=== PATIENT | male | born 1960 | race Caucasian/White ===

== ENCOUNTER → 2020-03-13 15:20 | Outpatient (CLI) | payer BC, SELFPAY ==
[2020-03-13 16:09] LABS: Basophils % 0.9 % (0.1-2.0); Eosinophils # 0.1 K/mm3 (0.0-0.4); Eosinophils % 1.9 % (0.1-12.0); Hematocrit 47.8 % (42.0-52.0); Hemoglobin 15.6 g/dL (14.1-18.0); Lymphocytes # 1.7 K/mm3 (0.7-4.5); Lymphocytes % 36.9 % (10-50); Mean Corpuscular HGB Conc 32.7 g/dL (31.8-35.4); Mean Corpuscular Hemoglobin 30.5 pg (27.0-31.2); Mean Corpuscular Volume 93.2 fl (80-94); Mean Platelet Volume 9.4 fl (7.4-10.4); Monocytes # 0.4 K/mm3 (0.1-1.0); Monocytes % 7.9 % (1.7-9.3); Neutrophils # 2.5 K/mm3 (1.8-7.8); Neutrophils % 52.4 % (37.0-80.0); Platelet Count 259 K/mm3 (142-424); Red Blood Count 5.13 M/mm3 (4.60-6.20); Red Cell Distribution Width 13.7 % (11.5-17.5); White Blood Count 4.7 K/mm3 (4.8-10.8)
[2020-03-13 16:10] LABS: Creatinine,Urine Random 126 mg/dL (Not Estab.)
[2020-03-13 16:13] LABS: Alanine Aminotransferase 40 U/L (12-78); Albumin Level 4.1 g/dl (3.5-5.0); Albumin/Globulin Ratio 1.3 (1.1-1.8); Alkaline Phosphatase 64 U/L (38-126); Anion Gap 12.4 mEq/L (5-15); Aspartate Amino Transferase 39 U/L (17-59); Bilirubin,Total 0.4 mg/dl (0.2-1.3); Blood Urea Nitrogen 15 mg/dl (9-20); Carbon Dioxide 26 mmol/L (22.0-30.0); Chloride 103 mmol/L (98-107); Chol/HDL Ratio 4.6 (1-3.5); Cholesterol 208 mg/dl (140-200); Estimated Glomerular Filt Rate 86 ml/min (>60); GFR (African American) 104 ML/MIN (>60); Globulin 3.1 g/dL (1.3-3.2); Glucose 145 mg/dl (74-100); HDL Cholesterol 45 mg/dl (40-60); Potassium 4.4 mmoL/L (3.5-5.1); Sodium 137 mmol/L (136-145); Total Protein,Serum 7.2 g/dl (6.3-8.2); Triglycerides 262 mg/dl (30-150); VLDL Cholesterol 52 mg/dL (0-40)
[2020-03-13 16:16] LABS: Microalbumin < 6.000 mg/L (0-16.7)
[2020-03-13 16:23] LABS: Direct LDL Cholesterol 134.93 mg/dL (100-129)
[2020-03-13 16:28] LABS: Hemoglobin A1C 7.1 % (4.0-6.0)
[2020-03-13 16:43] LABS: Prostate Specific Ag Screen 0.1 ng/ml (0.0-4.0)
== END ==
PROVIDERS: Visit Provider Family Medicine
DX: E11.9 Type 2 diabetes mellitus without complications (principal); E78.5 Hyperlipidemia, unspecified; I10 Essential (primary) hypertension; Z12.5 Encounter for screening for malignant neoplasm of prostate; Z79.84 Long term (current) use of oral hypoglycemic drugs
CPT/HCPCS: 80053; 80061; 82043; 82570; 83036; 85025; G0103

== ENCOUNTER → 2020-03-22 09:08 | Outpatient (CLI) | payer BC, SELFPAY ==
--- NOTE | 2020-03-22 09:09 | CA_ITS ---
APPROVED REPORT EXAM: Comprehensive 2D, Doppler, and color-flow Echocardiogram Nurse'S Companion: Olive Paige RT(R) Ht: 5 ft 6 in Wt: 196lbs BSA: 1.98 BP: 126/84 mmHg Indications: murmur, HTN, DM, hyperlipidemia Echo Enhancing Agent Indication: Endocardial border delineation Agent(s) / Amount(s) Used: Definity 2 cc 2D Dimensions LVOT 1.76 cm (M/F) 1.5-2.5 M-Mode Dimensions RVDd 1.64 cm (0.9-2.6) LA Diam 3.96 cm (1.9-4.0) LVDd 4.13 cm (3.5-5.7) Ao Diam 2.74 cm (2.0-3.7) LVDs 2.81 cm (3.5-5.7) IVSd 0.96 cm (0.6-1.1) PWd 0.75 cm (0.6-1.1) EF (Teich) 60.50% FS 32.00% EDV (Teich) 75.50 mL ESV (Teich) 29.80 mL LV Diastology E Decel Time 217.00 (160-240 msec) E/A Ratio 4.1 MED E' 7.00 (< 7 cm/sec) E'/MED E' Ratio 16.21 (>14) LAT E' 8.60 (<10 cm/sec) E/LAT E' Ratio 13.20 (>14) Mitral Valve MV E Max Ferny. 114.00 (40-130 cm/s) MV A Velocity 28.00 (40-130 cm/s) E/A Ratio 4.04 MV Decel. Time 217.00 (160-240 ms) MV PHT 63.00 ms Left Ventricle Left atrium is mildly enlarged, left ventricle is normal size, mild concentric left ventricular hypertrophy, visually estimated ejection fraction 55% with no regional wall motion abnormality, grade 2 diastolic dysfunction seen with tissue Doppler evidence of raise left atrial pressure. Right Ventricle Right atrium and right ventricle are normal size and contractility. Aortic Valve Aortic valve is thickened and calcified without aortic stenosis or aortic insufficiency. Mitral Valve Mitral valve is grossly normal, there is mild mitral regurgitation. Tricuspid Valve Tricuspid valve is grossly normal, there is mild tricuspid regurgitation, tricuspid regurgitation jet velocity is inadequate for calculation of the right ventricular systolic pressure. Pulmonic Valve Pulmonic valve is poorly visualized. Great Vessels Aortic root is normal size. Pericardium No significant pericardial effusion noted. Conclusion 1. Mildly enlarged left atrium, normal left ventricular size, mild concentric left ventricular hypertrophy, visually estimated ejection fraction 55% with no regional wall motion abnormality, Definity contrast was utilized to delineate the endocardial surfaces, there is no left ventricular thrombus seen, grade 2 diastolic dysfunction with tissue Doppler evidence of raise left atrial pressure. 2. Thickened and calcified aortic valve without aortic stenosis or aortic insufficiency. 3. Mild mitral and tricuspid regurgitation. 4. No significant pericardial effusion noted. Electronically signed by : Dev Rivas, 03/23/2020 10:24:54
== END ==
PROVIDERS: PCP Family Medicine; Visit Provider Family Medicine
DX: R01.1 Cardiac murmur, unspecified (principal)
CPT/HCPCS: 93306; Q9957

== ENCOUNTER → 2020-03-28 11:09 | Outpatient (CLI) | payer BC, SELFPAY ==
--- NOTE | 2020-03-28 11:15 | XR_ITS ---
PROCEDURE: XR CHEST 2V CLINICAL HISTORY: chest pain, dyspnea COMPARISON: No exams were available for comparison FINDINGS: The cardiomediastinal silhouette and pulmonary vascularity are within normal limits. The lungs are clear without infiltrates, suspicious nodules, or pleural effusions. There are calcified right hilar nodes and there are calcified granulomata right upper lobe and right lung base. No acute bony abnormalities. IMPRESSION: Old granulomatous disease, no acute chest pathology noted Dictated by: Dr. Cordell Pino MD 03/28/2020 11:39 Dr. Cordell Pino MD in [place] 03/28/2020 11:39
== END ==
PROVIDERS: PCP Family Medicine; Visit Provider Nurse Practitioner Family
DX: R07.9 Chest pain, unspecified (principal); R06.00 Dyspnea, unspecified; R94.31 Abnormal electrocardiogram [ECG] [EKG]; E11.9 Type 2 diabetes mellitus without complications; E78.5 Hyperlipidemia, unspecified; I10 Essential (primary) hypertension; Z79.84 Long term (current) use of oral hypoglycemic drugs
CPT/HCPCS: 71046

== ENCOUNTER → 2020-04-10 07:15 | Outpatient (CLI) | payer BC, SELFPAY ==
--- NOTE | 2020-04-10 | CA_ITS ---
APPROVED REPORT Exam: Pharmacologic Technologist: Valeria Brasher Ht: 5 ft 6 in Wt: 200 lbs BSA: 2.00 m2 HR: 82 bpm BP: 174/84 mmHg Indications: Chest pain, Shortness of Breath Medical History Medications: Metoprolol,,,,, Metformin,,,,, Losartan,,,,, Atorvastatin,,,,, Tramadol,,,,, Hydrocodone-Acetaminophen,,,,, FeNOfibric Acid,,,,, Stress Test Details Test: LEXISCAN HR Resting HR: 94 bpm Max Heart Rate (APMHR): 159 bpm Max HR Achieved: 137 bpm Target HR (85% APMHR): 135 bpm % of APMHR: 86 Recovery HR: 107 bpm BP Resting BP: 174.0/84.0 mmHg Max BP: 194.0/86.0 mmHg Recovery BP: 174.0/82.0 mmHg ECG Resting ECG: Normal sinus rhythm, cannot rule out old inferior ME Clinical Exercise duration: 04:00 min Highest Stage Achieved: Exercise capacity: 1.0 METs Stress ECG Conclusion Symptoms: Chest pressure/tightness, shortness of air, mild stomach discomfort and malaise. Arrhythmias/Ectopy: Rare PVC Conclusion: Unremarkable Lexiscan stress. Myoview images reported separately. Electronically signed by : Dev Rivas, 04/11/2020 06:38:57
--- NOTE | 2020-04-10 07:15 | NM_ITS ---
APPROVED REPORT Exam: Nuclear Stress Test Indication: Chest pain, SOB, Fatigue, HTN, DM, High cholesterol, Family history Patient Location: Outpatient Stress Tech: Valeria Brasher HI Tech:Veda Diaz, ARRT, RT (R)(N) Ht: 5 ft 6 in Wt: 196 lbs HR: 82 bpm BP: 174/84 mmHg BSA: 1.98 m2 BMI: 31.6 History: Chest pain, SOB, Fatigue, HTN, DM, High cholesterol, Family history Procedure: Patient received a 0.4 mg of intravenous Lexiscan, resting heart rate 82 bpm, resting blood pressure 174/84 mmHg, with Lexiscan maximum heart rate achived was 125 bpm which is Less than 85 % of the maximum predicted heart rate and blood pressure was 194/86 mmHg. Electrocardiogram Resting electrocardiogram showed sinus rhythm, with Lexiscan there is less than 1.[address] segment depression noted from the baseline EKG. The EKG portion of the Lexiscan is nondiagnostic. Cardiac Stress and Resting SPECT Images: Cardiac Stress and Resting SPECT images were obtained using technetium 99m Myoview 32.7 mCi stress and 10.63 mCi at rest. Gated SPECT for analysis of segmental wall motion and calculation of the ejection fraction also done. Cardiac stress and rest SPECT images show uniform myocardial activity without segmental perfusion abnormality, computer derived ejection fraction is over 65% with no regional wall motion abnormality, right ventricle is normal size and contractility. Conclusion: 1. The EKG portion of the Lexiscan is nondiagnostic. 2. No scintigraphic evidence of reversible ischemia seen, computer derived ejection fraction is over 65% with no regional wall motion abnormality, right ventricle is normal size and contractility. 3. Normal Lexiscan Myoview study. Electronically signed by : Dev Rivas, 04/11/2020 06:53:48
--- NOTE | 2020-04-10 08:57 | HMH.ITSHM ---
Current Home Medications as stated by this patient Andry Tom or vendor representatives. []ATORVASTATIN METOPROLOL METFORMIN LOSARTAN FENOFIBIL TRAMADOL HYDROCODONE
== END ==
PROVIDERS: PCP Family Medicine; Visit Provider Urology
DX: R07.9 Chest pain, unspecified (principal); R06.00 Dyspnea, unspecified; R94.31 Abnormal electrocardiogram [ECG] [EKG]; E11.9 Type 2 diabetes mellitus without complications; E78.5 Hyperlipidemia, unspecified; I10 Essential (primary) hypertension; Z79.84 Long term (current) use of oral hypoglycemic drugs
CPT/HCPCS: 78452; 93017; A9502; J2785

== ENCOUNTER → 2020-12-21 17:37 | Outpatient (CLI) | payer BC, SELFPAY ==
[2020-12-21 18:29] LABS: Basophils % 0.5 % (0.1-2.0); Eosinophils # 0.1 K/mm3 (0.0-0.4); Eosinophils % 2.7 % (0.1-12.0); Hematocrit 44.2 % (42.0-52.0); Hemoglobin 14.2 g/dL (14.1-18.0); Lymphocytes # 2.1 K/mm3 (0.7-4.5); Lymphocytes % 42.2 % (10-50); Mean Corpuscular HGB Conc 32.2 g/dL (31.8-35.4); Mean Corpuscular Hemoglobin 30.1 pg (27.0-31.2); Mean Corpuscular Volume 93.5 fl (80-94); Mean Platelet Volume 8.9 fl (7.4-10.4); Monocytes # 0.5 K/mm3 (0.1-1.0); Monocytes % 10.3 % (1.7-9.3); Neutrophils # 2.2 K/mm3 (1.8-7.8); Neutrophils % 44.3 % (37.0-80.0); Platelet Count 246 K/mm3 (142-424); Red Blood Count 4.72 M/mm3 (4.60-6.20); Red Cell Distribution Width 13.1 % (11.5-17.5)
[2020-12-21 18:49] LABS: Alanine Aminotransferase 34 U/L (12-78); Albumin Level 4.3 g/dl (3.5-5.0); Albumin/Globulin Ratio 1.5 (1.1-1.8); Alkaline Phosphatase 66 U/L (38-126); Anion Gap 15.3 mEq/L (5-15); Aspartate Amino Transferase 35 U/L (17-59); Bilirubin,Total 0.4 mg/dl (0.2-1.3); Blood Urea Nitrogen 16 mg/dl (9-20); Calcium 9.6 mg/dl (8.4-10.2); Carbon Dioxide 26 mmol/L (22.0-30.0); Chloride 102 mmol/L (98-107); Chol/HDL Ratio 3.8 (1-3.5); Cholesterol 175 mg/dl (140-200); Estimated Glomerular Filt Rate 98 ml/min (>60); GFR (African American) 119 ML/MIN (>60); Globulin 2.9 g/dL (1.3-3.2); Glucose 101 mg/dl (74-100); HDL Cholesterol 46 mg/dl (40-60); Potassium 4.3 mmoL/L (3.5-5.1); Sodium 139 mmol/L (136-145); Total Protein,Serum 7.2 g/dl (6.3-8.2); Triglycerides 206 mg/dl (30-150); VLDL Cholesterol 41 mg/dL (0-40)
[2020-12-21 19:10] LABS: Microalbumin/Creatinine Ratio 5.2
[2020-12-21 19:16] LABS: Creatinine,Urine Random 165 mg/dL (Not Estab.)
[2020-12-21 19:46] LABS: Hemoglobin A1C 7.7 % (4.0-6.0)
== END ==
PROVIDERS: Visit Provider Family Medicine
DX: E11.9 Type 2 diabetes mellitus without complications (principal); E78.5 Hyperlipidemia, unspecified; I10 Essential (primary) hypertension; Z79.84 Long term (current) use of oral hypoglycemic drugs
CPT/HCPCS: 80053; 80061; 82043; 82570; 83036; 85025

== ENCOUNTER → 2021-03-12 07:51 | Outpatient (CLI) | payer BC, SELFPAY ==
--- NOTE | 2021-03-12 07:52 | CA_ITS ---
APPROVED REPORT EXAM: Comprehensive 2D, Doppler, and color-flow Echocardiogram Green Hide Inspector: Oralia Oliveira RVT Ht: 5 ft 6 in Wt: 191lbs BSA: 1.96 BP: 183/91 mmHg Indications: MURMUR,HTN,ABN EKG,HLD,DM 2D Dimensions LVOT 2.13 cm (M/F) 1.5-2.5 LA Volume 37.70 mL LA Volume Index 19.23 mL/m2 (M/F) 16-34 M-Mode Dimensions RVDd 2.25 cm (0.9-2.6) LA Diam 4.87 cm (1.9-4.0) LVDd 3.32 cm (3.5-5.7) Ao Diam 2.78 cm (2.0-3.7) LVDs 1.82 cm (3.5-5.7) IVSd 1.11 cm (0.6-1.1) PWd 0.93 cm (0.6-1.1) EF (Teich) 77.70% FS 45.20% EDV (Teich) 44.80 mL TAPSE 2.46 (<1.7) ESV (Teich) 10.00 mL LV Diastology E Decel Time 230.00 (160-240 msec) E/A Ratio 1.4 MED E' 6.60 (< 7 cm/sec) E'/MED E' Ratio 16.35 (>14) LAT E' 16.00 (<10 cm/sec) E/LAT E' Ratio 6.74 (>14) Mitral Valve MV E Max Ferny. 108.00 (40-130 cm/s) MV A Velocity 80.00 (40-130 cm/s) E/A Ratio 1.34 MV Decel. Time 230.00 (160-240 ms) MV PHT 67.00 ms Pulmonary Valve PV Peak Velocity 105.00 (50-150 cm/s) Tricuspid Valve TR P. Velocity 216.00 cm/s RAP Estimate 10.00 mmHg RVSP 28.60 mmHg Left Ventricle Left atrium is mildly enlarged, left ventricle is normal size, mild concentric left ventricular hypertrophy, visually estimated ejection fraction 55% with no obvious regional wall motion abnormality. Grade 1 diastolic dysfunction seen without tissue Doppler evidence of raise left atrial pressure. Right Ventricle Right atrium and right ventricle are normal size and contractility. Aortic Valve Aortic valve is thickened and calcified without aortic stenosis or aortic insufficiency. Mitral Valve Mitral valve is grossly normal, there is trace mitral regurgitation. Tricuspid Valve Tricuspid valve grossly normal, there is trace tricuspid regurgitation, tricuspid regurgitation jet velocity is inadequate for calculation of the right ventricular systolic pressure. Pulmonic Valve Pulmonic valve is poorly visualized. Great Vessels Aortic root is normal size. Inferior vena cava is poorly visualized. Pericardium No significant pericardial effusion noted. Conclusion 1. Mildly enlarged left atrium, normal left ventricular size, mild concentric left ventricular hypertrophy, visually estimated ejection fraction 55% with no regional wall motion abnormality, grade 1 diastolic dysfunction seen without tissue Doppler evidence of raise left atrial pressure. 2. Thickened and calcified aortic valve without aortic stenosis or aortic insufficiency. 3. Trace mitral and tricuspid regurgitation. 4. No significant pericardial effusion. 5. Inferior vena cava is normal size with normal inspiratory collapse. Electronically signed by : Dev Rivas MD 03/12/2021 18:36:54
--- NOTE | 2021-03-12 07:52 | CA_ITS ---
APPROVED REPORT Forensic Investigator: Oralia Oliveira RVT Study Quality: Good Indications: HTNHX KIDNEY STONES Risk Factors Hypertension Hyperlipidemia Diabetes Renal Artery Doppler Origin (R) 186.4/ cm/sec Proximal (R) 204.3/ cm/sec Mid (R) 246.8/ cm/sec Distal (R) 164.5/ cm/sec Renal Aorta Ratio (R) 0.00 Segmental A. (R) 63.6/18.4 cm/sec RI: 0.71 Segmental A. Sup (R) 63.6/18.4 cm/sec Segmental A. Mid (R) 39.8/13.8 cm/sec Segmental A. Inf (R) 32.9/16.1 cm/sec Origin (L) 134.9/ cm/sec Proximal (L) 160.4/ cm/sec Mid (L) 143.4/ cm/sec Distal (L) 148.7/ cm/sec Renal Aorta Ratio (L) 0.00 Segmental A. (L) 76.8/27.7 cm/sec RI: 0.63 Segmental A. Sup (L) 76.8/27.7 cm/sec Segmental A. Mid (L) 75.6/17.3 cm/sec Segmental A. Inf (L) 62.6/17.3 cm/sec Renal Measurements Kidney Size (R) 10.8x7.6 cm Cortical Thickness (R) 1.9 cm Kidney Size (L) 12.6x8.7 cm Cortical Thickness (L) 1.4 cm Findings Study suggests greater than 60% stenosis of the right renal artery. Study suggests no evidence of stenosis of the left renal artery. There is a 1.5 X 1.1 cm cyst mid to lower pole left kidney. Conclusion Study suggests greater than 60% stenosis of the right renal artery. Suggest CTA for confirmation Study suggests no evidence of stenosis of the left renal artery. There is a 1.5 X 1.1 cm cyst mid to lower pole left kidney. Electronically signed by : Brett Noel MD 03/12/2021 16:36:10
== END ==
PROVIDERS: PCP Family Medicine; Visit Provider Physician Assistant
DX: R01.1 Cardiac murmur, unspecified (principal); E11.9 Type 2 diabetes mellitus without complications; I10 Essential (primary) hypertension; E78.5 Hyperlipidemia, unspecified; R94.31 Abnormal electrocardiogram [ECG] [EKG]; Z79.84 Long term (current) use of oral hypoglycemic drugs
CPT/HCPCS: 93306; 93976

== ENCOUNTER → 2021-03-18 09:33 | Outpatient (CLI) | payer BC, SELFPAY | PROVIDERS: PCP Family Medicine; Visit Provider Physician Assistant | DX: R00.2 Palpitations (principal); R07.9 Chest pain, unspecified; R01.1 Cardiac murmur, unspecified; R06.00 Dyspnea, unspecified; E78.5 Hyperlipidemia, unspecified; I10 Essential (primary) hypertension; R94.31 Abnormal electrocardiogram [ECG] [EKG]; I70.1 Atherosclerosis of renal artery ==

== ENCOUNTER → 2021-03-26 09:23 | Outpatient (CLI) | payer BC, SELFPAY ==
[2021-03-26 09:58] LABS: Basophils % 0.8 % (0.1-2.0); Eosinophils # 0.2 K/mm3 (0.0-0.4); Eosinophils % 2.9 % (0.1-12.0); Hematocrit 46.6 % (42.0-52.0); Hemoglobin 14.9 g/dL (14.1-18.0); Lymphocytes # 1.7 K/mm3 (0.7-4.5); Lymphocytes % 31.2 % (10-50); Mean Corpuscular Hemoglobin 29.7 pg (27.0-31.2); Mean Corpuscular Volume 92.9 fl (80-94); Mean Platelet Volume 8.3 fl (7.4-10.4); Monocytes # 0.5 K/mm3 (0.1-1.0); Monocytes % 8.6 % (1.7-9.3); Neutrophils % 56.5 % (37.0-80.0); Platelet Count 255 K/mm3 (142-424); Red Blood Count 5.02 M/mm3 (4.60-6.20); White Blood Count 5.4 K/mm3 (4.8-10.8)
[2021-03-26 10:48] LABS: Chloride 100 mmol/L (98-107); Potassium 4.4 mmoL/L (3.5-5.1); Sodium 139 mmol/L (136-145)
[2021-03-26 10:51] LABS: Anion Gap 13.4 mEq/L (5-15); Blood Urea Nitrogen 16 mg/dl (9-20); Carbon Dioxide 30 mmol/L (22.0-30.0); Estimated Glomerular Filt Rate 86 ml/min (>60); GFR (African American) 103 ML/MIN (>60)
[2021-03-26 10:52] LABS: Calcium 9.7 mg/dl (8.4-10.2); Glucose 145 mg/dl (74-100)
== END ==
PROVIDERS: Visit Provider Physician Assistant
DX: Z01.812 Encounter for preprocedural laboratory examination (principal); Z11.52 Encounter for screening for COVID-19; R06.00 Dyspnea, unspecified; R07.9 Chest pain, unspecified; R01.1 Cardiac murmur, unspecified; I70.1 Atherosclerosis of renal artery; I10 Essential (primary) hypertension; E11.9 Type 2 diabetes mellitus without complications; E78.5 Hyperlipidemia, unspecified; R94.31 Abnormal electrocardiogram [ECG] [EKG]
CPT/HCPCS: 36415; 80048; 85025; C9803; U0003; U0005

== ENCOUNTER 2021-04-02 08:46 | Day surgery (SDC) | payer BC, SELFPAY ==
[2021-04-02] VITALS (17 sets, daily range): BP systolic 94–169; BP diastolic 58–97; PULSE 55–71; RESP 13–16; O2SAT 92–100; BMI 30.7
--- NOTE | 2021-04-02 07:01 | IR_ITS ---
APPROVED REPORT Patient Location: Outpatient PROCEDURES Bilateral selective renal angiography INDICATION Abnormal renal duplex Informed consent was obtained prior to the procedure. COMPLICATIONS None Estimated Blood Loss: Less than 10 mls TECHNIQUE 1% lidocaine used to anesthetize the right femoral groin. The right femoral artery was accessed via the Seldinger technique. A 4 Polish sheath was placed in the right femoral artery. The JR4 catheter was used to selectively intubate each renal artery. At the end of the diagnostic angiogram the patient was transferred to the postop holding area in stable condition for sheath removal. ANGIOGRAPHIC RESULTS Right renal artery singular normal Left renal artery singular normal IMPRESSION Angiographically normal renal arteries PLAN 1. Treatment of hypertension Electronically signed by : Tyler Islas MD 04/02/2021 11:34:44
== END 2021-04-02 14:54 | disposition home or self-care (01) ==
LOC: CATHLAB 08:47
PROVIDERS: PCP Family Medicine; Visit Provider Internal Medicine
DX: I70.1 Atherosclerosis of renal artery (principal); I10 Essential (primary) hypertension; E11.9 Type 2 diabetes mellitus without complications; Z79.84 Long term (current) use of oral hypoglycemic drugs; E78.5 Hyperlipidemia, unspecified
CPT/HCPCS: 36252; 99152; C1725; C1769; J1644; Q9967

== ENCOUNTER → 2021-09-06 09:53 | Outpatient (CLI) | payer BC, SELFPAY ==
[2021-09-06 17:46] LABS: Prostate Specific Ag Screen 0.2 ng/ml (0.0-4.0)
[2021-09-06 19:29] LABS: Hemoglobin A1C 6.3 % (4.0-6.0)
== END ==
PROVIDERS: PCP Family Medicine; Visit Provider Family Medicine
DX: R10.31 Right lower quadrant pain (principal); E11.9 Type 2 diabetes mellitus without complications; Z12.5 Encounter for screening for malignant neoplasm of prostate; Z79.84 Long term (current) use of oral hypoglycemic drugs
CPT/HCPCS: 83036; 87086; G0103

== ENCOUNTER → 2022-03-18 13:08 | Outpatient (CLI) | payer BC, SELFPAY ==
[2022-03-18 17:37] LABS: Basophils # 0.1 K/mm3 (0-0.2); Eosinophils # 0.2 K/mm3 (0.0-0.4); Eosinophils % 3.5 % (0.1-12.0); Hematocrit 43.8 % (42.0-52.0); Hemoglobin 14.1 g/dL (14.1-18.0); Lymphocytes # 1.8 K/mm3 (0.7-4.5); Lymphocytes % 31.5 % (10-50); Mean Corpuscular HGB Conc 32.1 g/dL (31.8-35.4); Mean Corpuscular Volume 93.4 fl (80-94); Mean Platelet Volume 9.4 fl (7.4-10.4); Monocytes # 0.4 K/mm3 (0.1-1.0); Monocytes % 7.8 % (1.7-9.3); Neutrophils # 3.2 K/mm3 (1.8-7.8); Neutrophils % 56.2 % (37.0-80.0); Platelet Count 279 K/mm3 (142-424); Red Blood Count 4.69 M/mm3 (4.60-6.20); Red Cell Distribution Width 13.6 % (11.5-17.5); White Blood Count 5.7 K/mm3 (4.8-10.8)
[2022-03-18 17:48] LABS: Alanine Aminotransferase 30 U/L (12-78); Albumin Level 4.4 g/dl (3.5-5.0); Albumin/Globulin Ratio 1.8 (1.1-1.8); Alkaline Phosphatase 48 U/L (38-126); Aspartate Amino Transferase 34 U/L (17-59); Bilirubin,Total 0.3 mg/dl (0.2-1.3); Blood Urea Nitrogen 21 mg/dl (9-20); Calcium 10.2 mg/dl (8.4-10.2); Carbon Dioxide 27 mmol/L (22.0-30.0); Chloride 101 mmol/L (98-107); Chol/HDL Ratio 3.7 (1-3.5); Cholesterol 159 mg/dl (140-200); Estimated Glomerular Filt Rate 75 ml/min (>60); GFR (African American) 91 ML/MIN (>60); Globulin 2.5 g/dL (1.3-3.2); Glucose 124 mg/dl (74-100); HDL Cholesterol 43 mg/dl (40-60); Sodium 138 mmol/L (136-145); Total Protein,Serum 6.9 g/dl (6.3-8.2); Triglycerides 178 mg/dl (30-150); VLDL Cholesterol 36 mg/dL (0-40)
[2022-03-18 18:50] LABS: Direct LDL Cholesterol 84.73 mg/dL (100-129)
[2022-03-18 19:37] LABS: Hemoglobin A1C 6.2 % (4.0-6.0)
== END ==
PROVIDERS: PCP Family Medicine; Visit Provider Family Medicine
DX: Z00.00 Encounter for general adult medical examination without abnormal findings (principal); I10 Essential (primary) hypertension; E78.5 Hyperlipidemia, unspecified; M54.9 Dorsalgia, unspecified; G89.29 Other chronic pain; Z12.5 Encounter for screening for malignant neoplasm of prostate
CPT/HCPCS: 80053; 80061; 83036; 85025

== ENCOUNTER → 2022-12-24 09:02 | Outpatient (CLI) | payer BC, SELFPAY ==
[2022-12-24 09:48] LABS: Basophils % 0.7 % (0.1-2.0); Eosinophils # 0.2 K/mm3 (0.0-0.4); Eosinophils % 4.5 % (0.1-12.0); Hematocrit 46.2 % (42.0-52.0); Hemoglobin 14.4 g/dL (14.1-18.0); Lymphocytes # 1.6 K/mm3 (0.7-4.5); Mean Corpuscular HGB Conc 31.2 g/dL (31.8-35.4); Mean Corpuscular Hemoglobin 28.7 pg (27.0-31.2); Mean Corpuscular Volume 91.9 fl (80-94); Mean Platelet Volume 9.1 fl (7.4-10.4); Monocytes # 0.3 K/mm3 (0.1-1.0); Monocytes % 6.8 % (1.7-9.3); Neutrophils # 2.2 K/mm3 (1.8-7.8); Neutrophils % 50.9 % (37.0-80.0); Platelet Count 227 K/mm3 (142-424); Red Blood Count 5.03 M/mm3 (4.60-6.20); Red Cell Distribution Width 13.8 % (11.5-17.5); White Blood Count 4.2 K/mm3 (4.8-10.8)
[2022-12-24 10:16] LABS: Hemoglobin A1C 6.5 % (4.0-6.0)
[2022-12-24 10:43] LABS: Alanine Aminotransferase 31 U/L (12-78); Albumin Level 3.9 g/dl (3.5-5.0); Albumin/Globulin Ratio 1.4 (1.1-1.8); Alkaline Phosphatase 45 U/L (38-126); Anion Gap 13.8 mEq/L (5-15); Aspartate Amino Transferase 35 U/L (17-59); Bilirubin,Total 0.3 mg/dl (0.2-1.3); Blood Urea Nitrogen 20 mg/dl (9-20); Calcium 9.5 mg/dl (8.4-10.2); Carbon Dioxide 27 mmol/L (22.0-30.0); Chloride 100 mmol/L (98-107); Chol/HDL Ratio 5.4 (1-3.5); Cholesterol 129 mg/dl (140-200); Estimated Glomerular Filt Rate 75 ml/min (>60); GFR (African American) 91 ML/MIN (>60); Globulin 2.7 g/dL (1.3-3.2); Glucose 110 mg/dl (74-100); HDL Cholesterol 24 mg/dl (40-60); Potassium 3.8 mmoL/L (3.5-5.1); Sodium 137 mmol/L (136-145); Total Protein,Serum 6.6 g/dl (6.3-8.2); Triglycerides 302 mg/dl (30-150); VLDL Cholesterol 60 mg/dL (0-40)
[2022-12-24 10:54] LABS: Direct LDL Cholesterol 77.28 mg/dL (100-129)
[2022-12-24 11:14] LABS: Prostate Specific Ag Screen 0.2 ng/ml (0.0-4.0)
== END ==
PROVIDERS: PCP Family Medicine; Visit Provider Family Medicine
DX: Z00.00 Encounter for general adult medical examination without abnormal findings (principal); I10 Essential (primary) hypertension; E78.5 Hyperlipidemia, unspecified; Z79.899 Other long term (current) drug therapy; Z12.5 Encounter for screening for malignant neoplasm of prostate
CPT/HCPCS: 36415; 80053; 80061; 83036; 85025; G0103

== ENCOUNTER → 2023-01-23 14:03 | Outpatient (CLI) | payer BC, SELFPAY ==
--- NOTE | 2023-01-23 14:06 | CA_ITS ---
APPROVED REPORT EXAM: Comprehensive 2D, Doppler, and color-flow Echocardiogram Gun Profiler: Olive Paige RT(R) Ht: 5 ft 6 in Wt: 175lbs BSA: 1.89 BP: 156/80 mmHg Indications: CP, dyspnea, DD, HTN, DM, hyperlipidemia, Abn EKG, recent COVID (7 weeks ago) SOB worse since COVID infection. 2D Dimensions LVOT 1.57 cm (M/F) 1.5-2.5 LVEF (Quinn's) 56.80 % M: 52 - 72 LV Volume 98.40 mL M: 62 - 150 LV Volume Index 52.06 mL/m2 M: 34 - 74 LA Volume 29.00 mL LA Volume Index 15.34 mL/m2 (M/F) 16-34 M-Mode Dimensions RVDd 1.90 cm (0.9-2.6) LA Diam 4.38 cm (1.9-4.0) LVDd 4.49 cm (3.5-5.7) Ao Diam 2.44 cm (2.0-3.7) LVDs 2.85 cm (3.5-5.7) IVSd 0.84 cm (0.6-1.1) PWd 0.72 cm (0.6-1.1) EF (Teich) 66.40% FS 36.50% EDV (Teich) 92.00 mL ESV (Teich) 30.90 mL LV Diastology E Decel Time 213.00 (160-240 msec) E/A Ratio 1.4 MED E' 8.00 (< 7 cm/sec) E'/MED E' Ratio 15.65 (>14) LAT E' 9.80 (<10 cm/sec) E/LAT E' Ratio 12.78 (>14) Mitral Valve MV E Max Ferny. 125.00 (40-130 cm/s) MV A Velocity 91.00 (40-130 cm/s) E/A Ratio 1.38 MV Decel. Time 213.00 (160-240 ms) MV PHT 62.00 ms Left Ventricle The left ventricle is normal size. The left ventricular systolic function is normal. The left ventricular ejection fraction is within the normal range. There is normal left ventricular wall thickness. There is normal LV segmental wall motion. The left ventricular diastolic function is normal. LVEF is 55-60%. Right Ventricle The right ventricle is normal size. The right ventricular systolic function is normal. Atria The left atrium size is normal. The right atrium size is normal. There is no Doppler evidence of interatrial shunt. Aortic Valve The aortic valve is mildly thickened, cannot rule out bicuspid aortic valve. There is no aortic valvular stenosis. No aortic regurgitation is present. Mitral Valve The mitral valve is normal in structure. No evidence of mitral valve stenosis. Trace mitral regurgitation. Tricuspid Valve The tricuspid valve leaflets are thin and pliable. Trace tricuspid regurgitation. RVSP is normal. Pulmonic Valve The pulmonary valve is normal in structure. Trace pulmonic regurgitation. Great Vessels The aortic root is normal in size. The ascending aorta is normal in size. IVC is normal in size and collapses >50% with inspiration. Pericardium There is no pericardial effusion. Other Information Study Quality: Fair Conclusion Normal biventricular systolic function. Mildly thickened aortic valve leaflets, cannot rule out bicuspid aortic valve No significant valvular stenosis or regurgitation. Electronically signed by : Maryellen Love MD 01/25/2023 22:18:18
--- NOTE | 2023-01-23 15:05 | XR_ITS ---
FINAL REPORT CLINICAL HISTORY: Valve thickening, H/O covid 7 weeks ago, pt c/o SOB FINDINGS: TWO-VIEW CHEST The heart size is normal. The mediastinum is normal. There is mild left base opacity, may represent atelectasis or scar. There is no pneumothorax. IMPRESSION: Left base atelectasis or scar. Reviewed, Interpreted and Dictated by Robby Prabhakar III, MD Transcribed by Carito Camacho Authenticated and [facility]
== END ==
PROVIDERS: PCP Family Medicine; Visit Provider Family Medicine
DX: R06.02 Shortness of breath (principal); R07.9 Chest pain, unspecified
CPT/HCPCS: 71046; 93306

== ENCOUNTER → 2023-03-04 06:17 | Outpatient (CLI) | payer BC, SELFPAY ==
--- NOTE | 2023-03-04 06:23 | NM_ITS ---
APPROVED REPORT Exam: Nuclear Stress Test Indication: chest pain..soa..palpiations..fatigue Patient Location: Outpatient Stress Tech: Valeria Brasher [place] Tech:Rosa Dickson ANABELAMaria RT(R)(N) Ht: 5 ft 6 in Wt: 175 lbs HR: 80 bpm BP: 163/90 mmHg BSA: 1.89 m2 Rhythm: NSR TID: 1.15 BMI: 28.2 History: chest pain..soa..palpiations..fatigue Procedure: Patient received 0.4 mg of intravenous Lexiscan, resting heart rate 80 bpm, resting blood pressure 163/90 mmHg, with Lexiscan maximum heart rate achieved was 97 bpm which is 85 % of the maximum predicted heart rate and blood pressure was 164/100 mmHg. With Lexiscan, patient denied any complaint of chest pain. Cardiac Stress and Resting SPECT Images: Cardiac Stress and Resting SPECT images were obtained using technetium 99m Myoview 31.6 mCi stress and 9.52 mCi at rest. Resting and stress imaging in supine and prone position demonstrate a medium sized, moderate, predominantly reversible perfusion defect in the inferior LV wall. Gated imaging demonstrates low-normal global LV systolic function. There is mild hypokinesis of the basal inferior LV wall. LVEF is calculated at 53%. Conclusion: Medium sized, moderate, predominantly reversible perfusion defect in the inferior LV wall. Findings are suggestive of reversible ischemia. Gated imaging demonstrates low-normal global LV systolic function. There is mild hypokinesis of the basal inferior LV wall. LVEF is calculated at 53%. Electronically signed by : Maryellen Love MD 03/08/2023 21:57:52
[2023-03-04 07:49] LABS: Blood Urea Nitrogen 19 mg/dl (9-20); Estimated Glomerular Filt Rate 67 ml/min (>60); GFR (African American) 82 ML/MIN (>60)
--- NOTE | 2023-03-04 09:29 | CT_ITS ---
FINAL REPORT TECHNIQUE: The patient was injected with IV contrast. Axial images were obtained through the chest in a PE protocol. 3-D reconstruction images were also performed. Individualized dose reduction techniques using automated exposure control or adjustment of the MA and/or KV according to patient's size were employed. CLINICAL HISTORY: dyspnea FINDINGS: There is a 1.2 cm nodule in the anterior right thyroid lobe. Mediastinal vasculature is adequately opacified. No pulmonary artery filling defects are identified to suggest PE. There is no aortic dissection. There is no axillary adenopathy. There is no hilar or mediastinal adenopathy. The heart size is normal. There is no pericardial or pleural effusion. Limited images of the upper abdomen show the gallbladder to be absent. No suspicious infiltrate or nodule is identified. There is scarring in the lung bases. IMPRESSION: No pulmonary embolus or dissection. Right thyroid lobe nodule. Recommend thyroid ultrasound. Reviewed, Interpreted and Dictated by Julian Pedersen MD Transcribed by Carito Camacho Authenticated and [facility]
--- NOTE | 2023-03-04 09:40 | CA_ITS ---
APPROVED REPORT Exam: Pharmacologic Technologist: Valeria Brasher Ht: 5 ft 6 in Wt: 183 lbs BSA: 1.93 m2 HR: 72 bpm BP: 163/90 mmHg Rhythm: NSR Indications: Shortness of Breath Medical History Medications: Metoprolol,,,,, Metformin,,,,, Gabapentin,,,,, Losartan,,,,, Atorvastatin,,,,, TAMSULOSIN,,,,, Albuterol,,,,, Tramadol,,,,, [place],,,,, Prednisone,,,,, Maxzide,,,,, FeNOfibric Acid,,,,, Stress Test Details Test: LEXISCAN HR Resting HR: 80 bpm Max Heart Rate (APMHR): 156 bpm Max HR Achieved: 97 bpm Target HR (85% APMHR): 133 bpm % of APMHR: 62 Recovery HR: 80 bpm BP Resting BP: 163.0/90.0 mmHg Max BP: 164.0/100.0 mmHg Recovery BP: 164.0/100.0 mmHg ECG Resting ECG: Normal sinus rhythm, PVC Stress ECG: No significant ST changes Arrhythmia: PVCs Clinical Exercise duration: 04:00 min Highest Stage Achieved: Exercise capacity: 1.0 METs Stress ECG Conclusion Symptoms: Shortness of air, chest heaviness, mild head and stomach discomfort Arrhythmias/Ectopy: None ST-T Changes: No significant ST changes. Conclusion: Unremarkable Lexiscan stress. Myoview images reported separately. Test Summary REST . . . . . . . Resting REST 04:38 . . 80 . 163/ 90 . . Stage 1 . . . . . . . Myoview Injected Stage 1 01:00 . . 94 . . . . Stage 2 . . . . . . . chest pressure Stage 2 01:00 . . 87 . 160/ 90 . . Stage 3 01:00 . . 83 . 160/ 84 . . Stage 4 01:00 . . 85 . 148/ 81 . Stop exercise at 04:00 RECOVERY 01:00 . . 85 . . . . RECOVERY 02:00 . . 78 . . . . RECOVERY 03:00 . . 82 . 159/ 92 . . RECOVERY 04:00 . . 81 . 159/ 92 . . RECOVERY 05:00 . . 79 . 164/100 . . RECOVERY 05:13 . . 77 . 164/100 . . Electronically signed by : Maryellen Love MD 03/08/2023 21:55:10
== END ==
PROVIDERS: PCP Family Medicine; Visit Provider Physician Assistant
DX: I11.9 Hypertensive heart disease without heart failure (principal); R06.00 Dyspnea, unspecified; R07.89 Other chest pain; R94.31 Abnormal electrocardiogram [ECG] [EKG]; E78.5 Hyperlipidemia, unspecified; Z87.891 Personal history of nicotine dependence
CPT/HCPCS: 71275; 78452; 82565; 84520; 93017; 93018; A9502; J2785; Q9967

== ENCOUNTER → 2023-03-09 12:45 | Outpatient (CLI) | payer BC, SELFPAY ==
--- NOTE | 2023-03-09 13:34 | PC.NURSE ---
PFT completed without incident. Good effort given. Albuterol 0.083% given via HHN, per protocol, Pt tolerated tx well.
--- NOTE | 2023-03-09 14:01 | US_ITS ---
FINAL REPORT CLINICAL HISTORY: Abnormal CTA - Further exam recommended COMPARISON: None FINDINGS: THYROID ULTRASOUND: The right thyroid lobe measures 4.7 x 1.7 x 2.7 cm in diameter. There is a 5 x 5 x 3 mm spongiform nodule in the right thyroid, a TI-RADS 1 category nodule. There is a second nodule, measuring 22 x 9 x 17 mm in size, spongiform with a macrocalcification, also a TI-RADS 1 category nodule. The left lobe of the thyroid gland measures 4.5 x 1.2 x 1.4 cm in size. No focal nodule or mass is identified. The isthmus of the thyroid gland measures 3.4 mm in thickness. IMPRESSION: There are 2 thyroid nodules in the right lobe of the thyroid gland, as described, both are considered TI-RADS 1 category nodules. No follow-up is necessary at this time according to TI-RADS criteria. Reviewed, Interpreted and Dictated by Robby Prabhakar III, MD Transcribed by Tahmina Ly Authenticated and [facility]
== END ==
PROVIDERS: PCP Family Medicine; Visit Provider Family Medicine
DX: E04.1 Nontoxic single thyroid nodule (principal); R68.89 Other general symptoms and signs; R06.09 Other forms of dyspnea
CPT/HCPCS: 76536; 94060; 94726; 94729

== ENCOUNTER 2023-03-23 08:52 | Day surgery (SDC) | payer BC, SELFPAY ==
[2023-03-23] VITALS (10 sets, daily range): BP systolic 81–167; BP diastolic 35–92; PULSE 55–66; RESP 17–20; O2SAT 92–99; BMI 29.2
--- NOTE | 2023-03-23 07:16 | IR_ITS ---
APPROVED REPORT Patient Location: Outpatient PROCEDURES Left heart catheterization Left ventriculogram Selective coronary angiogram INDICATION Abnormal Myoview, Angina pectoris Informed consent was obtained prior to the procedure. COMPLICATIONS None Estimated Blood Loss: Less than 10 mls TECHNIQUE One percent lidocaine used to anesthetize the right anterior aspect of the wrist. The right radial artery was accessed via the Seldinger technique. A 6 Spanish sheath was placed in the right radial artery. 2.5 mg of Verapamil, 800 mcg of nitroglycerin, 1mg Lidocaine and 5000 U Heparin were given through the arterial sheath. Due to tortuosity in the radial artery we are unable to cannulate and accessed the brachial artery. Because of this cardiac catheterization was converted to a femoral cath. One percent lidocaine was used to anesthetize the right groin. The right femoral artery was accessed via the Seldinger technique. A 4-Spanish sheath was placed in the right femoral artery. The JL-4 and JR-4 catheter was also used to perform left heart catheterization left ventriculogram and selective coronary angiogram. At the end of the procedure the patient was transferred to the post-op holding area in stable condition for arterial sheath removal. ANGIOGRAPHIC RESULTS The left main artery Normal The left anterior descending artery Proximally normal tortuous with no atherosclerotic plaque The circumflex artery Codominant with a mid vessel 20 to 30% stenosis The right coronary artery Codominant normal The MALIN ventriculogram reveals Normal 60% The left ventricular end-diastolic pressure 20 mmHg IMPRESSION Mild nonflow limiting coronary artery disease Normal ejection fraction Elevated LVEDP PLAN 1. Medical management Electronically signed by : Tyler Islas MD 03/23/2023 12:05:35
[2023-03-23 09:29] LABS: Basophils % 0.7 % (0.1-2.0); Eosinophils # 0.4 K/mm3 (0.0-0.4); Eosinophils % 6.8 % (0.1-12.0); Hematocrit 47.3 % (42.0-52.0); Hemoglobin 15.7 g/dL (14.1-18.0); Lymphocytes # 2.4 K/mm3 (0.7-4.5); Lymphocytes % 41.9 % (10-50); Mean Corpuscular HGB Conc 33.1 g/dL (31.8-35.4); Mean Corpuscular Hemoglobin 30.9 pg (27.0-31.2); Mean Corpuscular Volume 93.5 fl (80-94); Mean Platelet Volume 8.5 fl (7.4-10.4); Monocytes # 0.4 K/mm3 (0.1-1.0); Monocytes % 6.1 % (1.7-9.3); Neutrophils # 2.5 K/mm3 (1.8-7.8); Neutrophils % 44.4 % (37.0-80.0); Platelet Count 317 K/mm3 (142-424); Red Blood Count 5.06 M/mm3 (4.60-6.20); Red Cell Distribution Width 14.2 % (11.5-17.5); White Blood Count 5.7 K/mm3 (4.8-10.8)
[2023-03-23 09:34] LABS: Chloride 100 mmol/L (98-107); Sodium 137 mmol/L (136-145)
[2023-03-23 09:35] LABS: Potassium 4.7 mmoL/L (3.5-5.1)
[2023-03-23 09:37] LABS: Blood Urea Nitrogen 20 mg/dl (9-20); Creatinine Clearance Estimated 67 mL/min (50-200); Estimated Glomerular Filt Rate 56 ml/min (>60)
[2023-03-23 09:38] LABS: Anion Gap 17.7 mEq/L (5-15); Calcium 9.3 mg/dl (8.4-10.2); Carbon Dioxide 24 mmol/L (22.0-30.0); GFR (African American) 67 ML/MIN (>60); Glucose 111 mg/dl (74-100)
== END 2023-03-23 15:39 | disposition home or self-care (01) ==
PROVIDERS: PCP Family Medicine; Visit Provider Internal Medicine
DX: I25.118 Atherosclerotic heart disease of native coronary artery with other forms of angina pectoris (principal); R94.31 Abnormal electrocardiogram [ECG] [EKG]; R06.00 Dyspnea, unspecified; R07.89 Other chest pain; R94.39 Abnormal result of other cardiovascular function study; E78.5 Hyperlipidemia, unspecified; E11.9 Type 2 diabetes mellitus without complications; Z79.84 Long term (current) use of oral hypoglycemic drugs; Z79.899 Other long term (current) drug therapy; I10 Essential (primary) hypertension
CPT/HCPCS: 80048; 85025; 93458; 99152; C1725; C1760; C1769; J1644; Q9967

== ENCOUNTER 2023-06-11 22:06 | Outpatient (CLI) | payer BC, SELFPAY ==
[2023-06-13 15:51] LABS: Testosterone,Total 184 ng/dL (264-916)
== END 2023-06-11 23:59 ==
LOC: LAB.DROPOF 22:07
PROVIDERS: PCP Family Medicine; Visit Provider Family Medicine
DX: I51.89 Other ill-defined heart diseases (principal); E29.1 Testicular hypofunction
CPT/HCPCS: 84403

== ENCOUNTER 2023-08-10 14:00 | Outpatient (CLI) | payer BC, SELFPAY ==
[2023-08-10 19:25] LABS: Hemoglobin A1C 6.6 % (4.0-6.0)
[2023-08-10 19:44] LABS: Alanine Aminotransferase 40 U/L (12-78); Albumin Level 4.3 g/dl (3.5-5.0); Albumin/Globulin Ratio 1.7 (1.1-1.8); Alkaline Phosphatase 49 U/L (38-126); Aspartate Amino Transferase 42 U/L (17-59); Bilirubin,Total 0.6 mg/dl (0.2-1.3); Blood Urea Nitrogen 16 mg/dl (9-20); Calcium 10.1 mg/dl (8.4-10.2); Carbon Dioxide 26 mmol/L (22.0-30.0); Chloride 104 mmol/L (98-107); Chol/HDL Ratio 3.3 (1-3.5); Cholesterol 143 mg/dl (140-200); Estimated Glomerular Filt Rate 85 ml/min (>60); GFR (African American) 103 ML/MIN (>60); Globulin 2.5 g/dL (1.3-3.2); Glucose 114 mg/dl (74-100); HDL Cholesterol 44 mg/dl (40-60); Sodium 138 mmol/L (136-145); Total Protein,Serum 6.8 g/dl (6.3-8.2); Triglycerides 182 mg/dl (30-150); VLDL Cholesterol 36 mg/dL (0-40)
[2023-08-10 19:56] LABS: Direct LDL Cholesterol 84.94 mg/dL (100-129)
[2023-08-12 09:09] LABS: Testosterone,Total 955 ng/dL (264-916)
== END 2023-08-10 23:59 | disposition home or self-care (01) ==
LOC: LAB.DROPOF 08-11 14:00
PROVIDERS: PCP Family Medicine; Visit Provider Family Medicine
DX: F32.A Depression, unspecified (principal); R94.39 Abnormal result of other cardiovascular function study
CPT/HCPCS: 80053; 80061; 83036; 84403

== ENCOUNTER 2023-11-30 09:30 | Outpatient (CLI) | payer MEDICARE, SELFPAY ==
[2023-11-30 19:32] LABS: Basophils # 0.1 K/mm3 (0-0.2); Basophils % 0.9 % (0.1-2.0); Eosinophils # 0.2 K/mm3 (0.0-0.4); Eosinophils % 3.1 % (0.1-12.0); Hemoglobin 15.9 g/dL (14.1-18.0); Lymphocytes # 1.8 K/mm3 (0.7-4.5); Lymphocytes % 30.2 % (10-50); Mean Corpuscular HGB Conc 30.5 g/dL (31.8-35.4); Mean Corpuscular Hemoglobin 27.3 pg (27.0-31.2); Mean Corpuscular Volume 89.5 fl (80-94); Monocytes # 0.7 K/mm3 (0.1-1.0); Monocytes % 11.4 % (1.7-9.3); Neutrophils # 3.3 K/mm3 (1.8-7.8); Neutrophils % 54.5 % (37.0-80.0); Platelet Count 284 K/mm3 (142-424); Red Blood Count 5.81 M/mm3 (4.60-6.20); Red Cell Distribution Width 16.9 % (11.5-17.5)
[2023-12-02 14:16] LABS: Testosterone,Total 531 ng/dL (264-916)
== END 2023-11-30 23:59 | disposition home or self-care (01) ==
LOC: LAB.DROPOF 12-01 10:03
PROVIDERS: PCP Family Medicine; Visit Provider Family Medicine
DX: R53.83 Other fatigue (principal); R42 Dizziness and giddiness; F32.A Depression, unspecified; E11.9 Type 2 diabetes mellitus without complications; Z79.84 Long term (current) use of oral hypoglycemic drugs
CPT/HCPCS: 84403; 85025

== ENCOUNTER 2023-12-09 07:46 | Outpatient (CLI) | payer MEDICARE, SELFPAY ==
--- NOTE | 2023-12-09 09:17 | NM_ITS ---
FINAL REPORT CLINICAL HISTORY: SOB COMPARISON: Chest radiograph dated 12/09/2023 FINDINGS: NUCLEAR MEDICINE VENTILATION AND PERFUSION IMAGING TECHNIQUE: V/Q scan is performed utilizing 36.2 technetium 99 M DTPA aerosol and IV administration of 8.57 technetium 99 M MAA. Images were obtained in AP, PA, lateral, and oblique projections. There is no evidence of segmental or subsegmental mismatch perfusion defects. IMPRESSION: Low probability for pulmonary embolus. Reviewed, Interpreted and Dictated by Robby Prabhakar III, MD Transcribed by Carito Camacho Authenticated and [facility]
--- NOTE | 2023-12-09 09:17 | XR_ITS ---
FINAL REPORT CLINICAL HISTORY: Shortness of breath COMPARISON: 01/23/2023 FINDINGS: Two views of the chest were obtained. The heart size and pulmonary vascularity are within normal limits. The mediastinum is normal. There are worsening bibasilar opacities which favor atelectasis over pneumonia. There is no pneumothorax. The bony thorax is intact. IMPRESSION: Worsening bibasilar opacities favor atelectasis over pneumonia. Reviewed, Interpreted and Dictated by Robby Prabhakar III, MD Transcribed by Marilee Cartagena Authenticated and . [facility]
[2023-12-09] MEDS: [UNRECOGNIZED DRUG - OTHER] IV (10:52)
[2023-12-09] MEDS: ISOTOPE TC MAA;1 DOE (UP TO 45 MCI) 1 DOSE IV (10:52)
[2023-12-09] MEDS: SODIUM CHLORIDE 0.9% 10ML SYR (RAD ONLY) 10 ML IV (10:52)
== END 2023-12-09 23:59 | disposition home or self-care (01) ==
LOC: RT 07:47
PROVIDERS: PCP Family Medicine; Visit Provider Internal Medicine Pulmonary Disease
DX: R06.09 Other forms of dyspnea (principal); R06.02 Shortness of breath
CPT/HCPCS: 71046; 78582; 94060; 94618; 94726; 94729; A9539; A9540

== ENCOUNTER 2024-02-22 12:00 | Outpatient (CLI) | payer MEDICARE, SELFPAY ==
[2024-02-22 18:51] LABS: Basophils # 0.1 K/mm3 (0-0.2); Basophils % 0.8 % (0.1-2.0); Eosinophils # 0.2 K/mm3 (0.0-0.4); Eosinophils % 3.4 % (0.1-12.0); Hematocrit 53.7 % (42.0-52.0); Hemoglobin 16.9 g/dL (14.1-18.0); Lymphocytes # 1.7 K/mm3 (0.7-4.5); Lymphocytes % 25.1 % (10-50); Mean Corpuscular HGB Conc 31.4 g/dL (31.8-35.4); Mean Corpuscular Hemoglobin 27.3 pg (27.0-31.2); Mean Corpuscular Volume 86.9 fl (80-94); Mean Platelet Volume 9.8 fl (7.4-10.4); Monocytes # 0.8 K/mm3 (0.1-1.0); Monocytes % 11.7 % (1.7-9.3); Neutrophils # 3.9 K/mm3 (1.8-7.8); Platelet Count 265 K/mm3 (142-424); Red Blood Count 6.17 M/mm3 (4.60-6.20); Red Cell Distribution Width 16.1 % (11.5-17.5); White Blood Count 6.7 K/mm3 (4.8-10.8)
[2024-02-22 19:15] LABS: Alanine Aminotransferase 39 U/L (12-78); Albumin Level 4.5 g/dl (3.5-5.0); Albumin/Globulin Ratio 1.5 (1.1-1.8); Alkaline Phosphatase 44 U/L (38-126); Aspartate Amino Transferase 46 U/L (17-59); Bilirubin,Total 0.7 mg/dl (0.2-1.3); Blood Urea Nitrogen 14 mg/dl (9-20); Calcium 9.6 mg/dl (8.4-10.2); Carbon Dioxide 28 mmol/L (22.0-30.0); Chloride 103 mmol/L (98-107); Chol/HDL Ratio 3.2 (1-3.5); Cholesterol 155 mg/dl (140-200); Estimated Glomerular Filt Rate 75 ml/min (>60); GFR (African American) 91 ML/MIN (>60); Glucose 146 mg/dl (74-100); HDL Cholesterol 49 mg/dl (40-60); Sodium 138 mmol/L (136-145); Total Protein,Serum 7.5 g/dl (6.3-8.2); Triglycerides 191 mg/dl (30-150); VLDL Cholesterol 38 mg/dL (0-40)
[2024-02-22 19:45] LABS: Prostate Specific Ag Screen 0.5 ng/ml (0.0-4.0)
== END 2024-02-22 23:59 | disposition home or self-care (01) ==
LOC: LAB.DROPOF 02-23 09:48
PROVIDERS: PCP Family Medicine; Visit Provider Family Medicine
DX: R94.39 Abnormal result of other cardiovascular function study (principal); I10 Essential (primary) hypertension; E11.9 Type 2 diabetes mellitus without complications; E78.5 Hyperlipidemia, unspecified; Z12.5 Encounter for screening for malignant neoplasm of prostate
CPT/HCPCS: 80053; 80061; 85025; G0103

== ENCOUNTER 2024-03-25 09:30 | Outpatient (CLI) | payer MEDICARE, SELFPAY ==
--- NOTE | 2024-03-25 09:31 | NM_ITS ---
FINAL REPORT TECHNIQUE: Sequential anterior images were obtained after the ingestion of 2 eggs, 1 piece of white toast with butter, and 6 ounce cup of water radiolabeled with 0.55 mCi technetium 99M sulfur colloid. CLINICAL HISTORY: Delayed gastric emptying 10:00 am .55 uci sulfur colloid injected into 2 eggs 1 white toast with butter 6 oz cup of water COMPARISON: None FINDINGS: GASTRIC EMPTYING SCAN Static images show normal emptying of the stomach into the small bowel. Based on the time activity curve, the estimated half-emptying time is 55 minutes. At 178 minutes, 97.5% of the gastric contents had emptied. IMPRESSION: Normal gastric emptying study. Reviewed, Interpreted and Dictated by oHpe Tubbs MD Transcribed by Sarai Medina Authenticated and [facility]
[2024-03-25] MEDS: TC99M SULF.COLLOID;1 DOSE (UP TO 20 MCI) IV (11:30)
== END 2024-03-25 23:59 | disposition home or self-care (01) ==
LOC: RAD 09:31
PROVIDERS: PCP Family Medicine; Visit Provider Family Medicine
DX: K30 Functional dyspepsia (principal)
CPT/HCPCS: 78264; A9541

== ENCOUNTER 2024-05-04 06:57 | Day surgery (SDC) | payer MEDICARE, SELFPAY ==
[2024-04-29 12:59] VITALS: BMI 29.9
[2024-05-04 07:41] VITALS: BP 137/89; PULSE 81; RESP 16; TEMP 36.7; O2SAT 95
[2024-05-04] MEDS: LACTATED RINGERS 1000ML 1,000 ML 50 ML IV (07:52)
[2024-05-04 07:53] LABS: POC Glucose,Bedside 99 (70-110)
--- NOTE | 2024-05-04 08:07 | EXP.ANES.CKL ---
[facility] Disclaimer: The information contained in this section may have been updated after the patient was seen, as this information can be updated by other users. Medical History (Updated 05/04/24 @ 07:51 by Belen Naranjo RN) Kidney stone Asthma Anxiety History of gastroesophageal reflux (GERD) Diabetes mellitus, type 2 History of 2019 novel coronavirus disease (COVID-19) History of anal fissures Abnormal stress test Atypical angina Essential hypertension Abnormal EKG Chest pain Dyspnea Surgical History History of shoulder surgery History of lumbar surgery History of lithotripsy History of colonoscopy History of cholecystectomy Family History Other Diabetes Emphysema of lung Heart disease Hypertension Stroke Social History (Updated 05/04/24 @ 07:51 by Belen Naranjo RN) Smoking Status: Former smoker smoking status stop date: 1988 alcohol intake: never substance use type: denies use current occupational status: retired Travel in the last 8 weeks: None household members: spouse housing: house caffeine: Yes Have you lived/traveled outside US in past 30 days?: No Contact w/someone who lives/traveled outside US past 30 days?: No Exposure to someone with infectious disease in past 14 days?: No Do you have a fever (greater than 100.4 F or 38 C)?: No Have you tested positive for COVID-19: Yes Exposed to someone with COVID-19 in past 14 days?: No Do you have a sore throat?: No Do you have a cough?: No Do you have any weakness?: No Are you experiencing any nausea/vomitting?: No Do you have any diarrhea?: No Are you experiencing any unusual bleeding?: No Do you have any muscle aches/pain?: No Do you have any abdominal pain?: No Are you experiencing loss of taste or smell?: No [facility] Anesthesia Checklist Patient Identification Patient Identification: Arm Band Structural Data Admitted From: Home Planned Operative Procedure/s: EGD/Colonoscopy Consent for Planned Operative Procedure(s) Verified: Yes Verified Documents: Surgical Consent and History and Physical NPO Status Verified Time NPO: 03:00 (finished prep) Additional verifications Anesthesia Reactions: No Airway Assessment Mallampati Score:: Class II C-Spine Mobility Assessed: Yes TMJ Mobility Assessed: Yes Dentition: Good Dentition Neurological Assessment Level of Consciousness: Awake, Alert and Appropriate Anesthesia Plan Anesthesia Risk discussed: Yes Anesthesia Plan: Verified ASA Class: III Anesthesia Type: MAC
--- NOTE | 2024-05-04 08:37 | P.HP_ITS ---
History of Present Illness *Admission Date: 05/04/24 *Reason for visit:: Nausea/early satiety/epigastric pain and screening *History of present illness: Mr. Tom is a 63-year-old gentleman who is here for diagnostic upper endoscopy and screening colonoscopy. The patient has had epigastric abdominal pain, nausea, early satiety and reflux. He does have some opioid-induced constipation which is unchanged. His last colonoscopy was 12 years ago ([place] in [facility]). The examination is deemed medically necessary for EGD and surveillance colonoscopy. The patient has been seen, interviewed and examined prior to the procedure by both myself and the anesthesia provider. [facility] Disclaimer: The information contained in this section may have been updated after the pat ient was seen, as this information can be updated by other users. Medical History (Updated 05/04/24 @ 07:51 by Belen Naranjo RN) Kidney stone Asthma Anxiety History of gastroesophageal reflux (GERD) Diabetes mellitus, type 2 History of 2019 novel coronavirus disease (COVID-19) History of anal fissures Abnormal stress test Atypical angina Essential hypertension Abnormal EKG Chest pain Dyspnea Surgical History History of shoulder surgery History of lumbar surgery History of lithotripsy History of colonoscopy History of cholecystectomy Family History Other Diabetes Emphysema of lung Heart disease Hypertension Stroke Social History (Updated 05/04/24 @ 07:51 by Belen Naranjo RN) Smoking Status: Former smoker smoking status stop date: 1988 alcohol intake: never substance use type: denies use current occupational status: retired Travel in the last 8 weeks: None household members: spouse housing: house caffeine: Yes Have you lived/traveled outside US in past 30 days?: No Contact w/someone who lives/traveled outside US past 30 days?: No Exposure to someone with infectious disease in past 14 days?: No Do you have a fever (greater than 100.4 F or 38 C)?: No Have you tested positive for COVID-19: Yes Exposed to someone with COVID-19 in past 14 days?: No Do you have a sore throat?: No Do you have a cough?: No Do you have any weakness?: No Are you experiencing any nausea/vomitting?: No Do you have any diarrhea?: No Are you experiencing any unusual bleeding?: No Do you have any muscle aches/pain?: No Do you have any abdominal pain?: No Are you experiencing loss of taste or smell?: No Other Medical History Have you received the Flu Vaccine for this season: Yes Have you received the Pneumonia Vaccine: Yes Review of Systems Review of Systems Review of systems (narrative): Negative *Cardiovascular Comments: Negative *Gastrointestinal Comments: Negative *Genitourinary Comments: Negative *Musculoskeletal Comments: Negative *Neurologic Comments: Negative Meds Home Medications and Allergies Home Medications ?Medication ?Instructions ?Recorded ?Confirmed ?Type hydrocodone 10 mg-acetaminophen 1 tab PO Q8H PRN pain 03/13/20 05/04/24 History 325 mg tablet ([place]) tramadol 50 mg tablet 50 mg PO Q6H Pain 03/13/20 05/04/24 History gabapentin 300 mg capsule 300 mg PO DAILY Pain 12/21/20 05/04/24 History albuterol sulfate 90 mcg/actuation 2 puff inhalation QID PRN 12/29/22 05/04/24 Rx aerosol inhaler shortness of breath or wheezing #8.5 grams aspirin 81 mg tablet,delayed 81 mg PO DAILY #30 tabs 02/20/23 05/04/24 Rx release (Adult Aspirin Regimen) nitroglycerin 0.4 mg sublingual 0.4 mg sublingual Q5M PRN chest 02/20/23 05/04/24 Rx tablet (Nitrostat) pain #20 tabs furosemide 40 mg tablet (Lasix) 40 mg PO DAILY #30 tabs 06/11/23 05/04/24 Rx buspirone 10 mg tablet 10 mg PO QID PRN anxiety #120 tabs 08/10/23 05/04/24 Rx amlodipine 10 mg tablet (Norvasc) 10 mg PO DAILY #90 tabs 10/28/23 05/04/24 Rx hydrochlorothiazide 25 mg tablet 25 mg PO DAILY #90 tabs 11/03/23 05/04/24 Rx metoprolol succinate 200 mg 200 mg PO DAILY #90 tabs 02/22/24 05/04/24 Rx tablet,extended release 24 hr (Toprol XL) testosterone cypionate 200 mg/mL 200 mg IM Q2W #6 mL 03/07/24 05/04/24 Rx intramuscular oil (Depo-Testosterone) budesonide-formoterol HFA 160 2 puff inhalation BID shortness of 03/17/24 05/04/24 Rx mcg-4.5 mcg/actuation aerosol breath or wheezing 90 days #10.2 inhaler (Symbicort) grams omeprazole 10 mg capsule,delayed 10 mg PO DAILY 03/17/24 05/04/24 History release famotidine 20 mg tablet 20 mg PO BID PRN GERD #60 tabs 04/04/24 05/04/24 Rx sodium,potassium,mag sulfates 17.5 See Rx Instructions PO .COMPLEX 04/21/24 05/04/24 Rx gram-3.13 gram-1.6 gram oral soln #354 mL (Suprep Bowel Prep Kit) acetaminophen 500 mg tablet 500 mg PO Q8H PRN Pain 05/04/24 05/04/24 History atorvastatin 20 mg tablet 20 mg PO DAILY 05/04/24 05/04/24 History fenofibric acid (choline) 135 mg 135 mg PO DAILY 05/04/24 05/04/24 History capsule,delayed release losartan 100 mg tablet 100 mg PO DAILY 05/04/24 05/04/24 History metformin 500 mg tablet 500 mg PO BID 05/04/24 05/04/24 History New Prescriptions to Start Prescriptions: Allergies Allergy/AdvReac Type Severity Reaction Status Date / Time No Known Allergies Allergy Verified 05/04/24 07:32 Exam Data for Last 24 hours Vital signs and Labs for Last 24 Hours: Temp Pulse Resp BP Pulse Ox O2 Del Method 98.1 F 81 16 137/89 95 Room Air 05/04/24 07:41 05/04/24 07:41 05/04/24 07:41 05/04/24 07:41 05/04/24 07:41 05/04/24 07:41 Laboratory Results - last 24 hr 05/04/24 07:45: POC Glucose 99 *Routine HEENT Exam Head: Present normocephalic Eye: Present EOMI and PERRL ENT: Present mucous membranes moist *Routine Neck Exam Neck: Present supple *Routine Respiratory Exam Respiratory: Present CTA bilaterally *Routine Cardiovascular Exam Cardiovascular: Present RRR *Routine Abdominal Exam Abdominal: Present soft and normoactive bowel sounds; Absent tenderness *Routine Rectal Exam Rectal:: deferred *Routine Genitalia Exam Genitalia:: deferred *Routine Extremities Exam Extremities: Absent cyanosis, clubbing or edema *Routine Skin Exam Skin: Present warm; Absent rash *Routine Neurological Exam Neurological: Present alert and oriented X3 Assessment and Plan *Assessment and plan (1) Epigastric pain: Status: Acute Category: Medical Code(s): R10.13 - Epigastric pain (2) Nausea: Status: Acute Category: Medical Code(s): R11.0 - Nausea (3) Early satiety: Status: Acute Category: Medical Code(s): R68.81 - Early satiety (4) Bloating: Status: Acute Category: Medical Code(s): R14.0 - Abdominal distension (gaseous) (5) Screening for malignant neoplasm of colon: Status: Acute Category: Medical Code(s): Z12.11 - Encounter for screening for malignant neoplasm of colon Plan A/P: 1. Dyspepsia for upper endoscopy and screening for colonoscopy is the preprocedural diagnosis. The patient will be anesthetized/sedated using MAC sedation. The patient has been seen and examined. Cardiac and lung assessment prior to the examination is stable. Proceed with planned EGD and surveillance colonoscopy
[2024-05-04 08:39] VITALS: O2SAT 98
--- NOTE | 2024-05-04 08:39 | HMH.PROCNOTE ---
[facility] Procedure Note Date: 05/04/24 Time: 09:03 Procedure Note:: Upper Endoscopy Procedure Report: Esophagogastroduodenoscopy with cold biopsies and TTS balloon dilation Endoscopost: Prem Katz II, MD Referring Physician: Adalid Corona MD Date of Procedure: May 04, 2024 Equipment: Olympus GIF 190 standard upper endoscope Sedation: MAC sedation Indications: Mr. Tom is a 63-year-old gentleman with persistent nausea and dyspepsia. He reports epigastric abdominal pain and discomfort with fullness, early satiety and bloating. He does have occasional dysphagia. The patient did have EGD and colonoscopy 12 years ago ([place] in [facility]). He has had prior cholecystectomy. He did have a recent gastric emptying study on 03/25/2024 that showed normal gastric emptying. He has not had any recent CT imaging or ultrasound. Recent labs from 02/22/2024 showed normal hemoglobin and hematocrit. He has normal liver chemistries. The patient is on omeprazole and famotidine as needed. Procedure: Prior to the procedure, a history and physical exam was performed, and patient's medications and allergies were reviewed. The risks, benefits and alternatives of the sedation and procedure were discussed with the patient. All questions were answered and informed consent was obtained. The patient was brought to the procedure room. Patient identification and proposed procedure were verified by the physician and the nurse. The patient was placed in a left lateral decubitus position and the scope was passed under direct vision. Throughout the procedure, the patient's blood pressure, pulse, and oxygen saturations were monitored continuously. The upper GI endoscopy was accomplished without difficulty. The patient tolerated the procedure well. Findings: The scope was passed directly into the upper esophagus and advanced to the third portion of the duodenum. The post bulbar duodenum, ampulla and duodenal bulb were normal with normal mucosa and conniventes. The scope was withdrawn through a normal duodenal bulb and pylorus into the stomach. There was moderate linear reactive gastropathy of the antrum body and fundus with bile reflux. There was no evidence of chronic gastritis. There were a couple of fundic gland polyps. Upon retroflexion there was no hiatal hernia. Biopsies were taken from the antrum and lesser curvature. The scope was then withdrawn into the esophagus. There was no evidence of reflux esophagitis or Tracy's. There was no corrugation or furrowing. There were strong tertiary contractions and evidence of mild to moderate esophageal dysmotility. The entire esophagus was dilated to 60 Tamazight/20 mm with a TTS hydrostatic balloon. There was mild resistance at the cricopharyngeus. The remainder of the esophageal mucosa was normal. Impression: 1. Bile reflux with moderate linear reactive gastropathy Plan: I will follow-up the biopsies. 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 Most of his symptoms of dyspepsia are related to and driven by lower intestinal gas pressure gradients/high gas pressure buildup resulting in backflow of bile and peptic fluid from the duodenum into the stomach (duodenal reflux). This gas production (carbon dioxide, hydrogen, methane, etc.) from the lower intestinal tract is the byproduct of colonic bacterial fermentation. This colonic fermentation occurs when there is more carbohydrate (dietary starches, sugars and high residue plant fiber) substrate that does not get digested (in the middle or small intestine) or occurs when there is colonic fecal buildup and colonic bacterial overgrowth. This indeed leads to bloating and the gas pressure buildup with gas pressure gradients that do drive backflow and dyspepsia. I will discuss the findings with the patient and family and proceed with screening colonoscopy. We will discuss dietary measures and treatment options.
--- NOTE | 2024-05-04 09:03 | P.PCN_ITS ---
[facility] Procedure Note Date: 05/04/24 Time: 09:14 Procedure Note:: Colonoscopy Procedure Report: Colonoscopy with cold snare polypectomy Endoscopist: Prem Katz II, MD Referring physician: Adalid Corona MD Date of Procedure: May 04, 2024 Equipment: Olympus 190 variable stiffness pediatric colonoscope Sedation: MAC sedation Indication: Mr. Tom is a 63-year-old gentleman who is here for follow-up screening/surveillance colonoscopy. The patient's last colonoscopy was 12 years ago ([place] in [facility]). He does state that there may have been polyps removed. The patient reports no rectal bleeding, weight loss, change in bowel habits or family history of colon cancer. He does have some dyspepsia and mild obstipation. He improved with the fiber bowel regimen. Procedure: Prior to the procedure, a history and physical exam was performed, and patient's medications and allergies were reviewed. The risks, benefits and alternatives of the sedation and procedure were discussed with the patient. All questions were answered and informed consent was obtained. The patient was brought to the procedure room. Patient identification and proposed procedure were verified by the physician and the nurse. The patient was placed in a left lateral decubitus position and the scope was passed under direct vision. Throughout the procedure, the patient's blood pressure, pulse, and oxygen saturations were monitored continuously. The colonoscopy was accomplished without difficulty. The patient tolerated the procedure well. Findings: On digital rectal examination there was normal rectal tone. There were no external hemorrhoids. The prostate was 2+, mildly firm with a small nodule in the left upper margin. The colonoscope was introduced through the anal canal to the rectum and advanced to the cecum. The ileocecal valve and appendiceal orifice were identified. The scope was advanced a short distance into the ileum which appeared grossly normal. The scope was then withdrawn into the colon. There were 3 polyps (descending x 2 (3 and 5 mm) and rectosigmoid x 1 (4 mm)). These were all removed via cold snare polypectomy. The remaining cecum, ascending and transverse colon and mucosa were grossly normal. There were scattered diverticuli throughout the descending and sigmoid colon (LEFT colon). The rectum itself was normal. Upon retroflexion within the rectum there were grade 2 internal hemorrhoids. The preparation was excellent throughout with [place] Preparation Score of 9. The cecal time was 12 minutes. Impression: 1. Diminutive colonic polyps x 3 2. Left-sided diverticulosis 3. Grade 2 internal hemorrhoids 4. Left upper margin prostate nodule Plan: I will follow-up the polyp histology and recommend repeat surveillance colonoscopy again in 5 to 7 years based upon the pathology. I would encourage fiber bulking supplementation on a long-term daily maintenance basis. The patient did have a firm left upper margin prostate nodule but his PSA in February was 0.5. PSA normal prostate cancer accounts for less than 10%. It may be worth doing percent free PSA diagnostic and referral to urology.
[2024-05-04 09:18] VITALS: BP 80/49; PULSE 65; RESP 16; TEMP 36.4; O2SAT 93
--- NOTE | 2024-05-04 09:27 | SUR.PHASEII ---
mouth guard removed at this time
[2024-05-04 09:28] VITALS: BP 96/57; PULSE 65; RESP 16; O2SAT 96
[2024-05-04 09:38] VITALS: BP 105/71; PULSE 66; RESP 16; O2SAT 95
[2024-05-04 09:48] VITALS: BP 119/70; PULSE 64; RESP 16; O2SAT 96
== END 2024-05-04 10:12 | disposition home or self-care (01) ==
PROVIDERS: PCP Family Medicine; Visit Provider Internal Medicine Gastroenterology
PROC: 0DJ08ZZ Inspection of Upper Intestinal Tract, Via Natural or Artificial Opening Endoscopic (ICD-10-PCS; CPT 45378; principal; 2024-05-04 08:30)
DX: R10.13 Epigastric pain (principal); R11.0 Nausea; R68.81 Early satiety; R14.0 Abdominal distension (gaseous); Z12.11 Encounter for screening for malignant neoplasm of colon; K31.7 Polyp of stomach and duodenum; K31.9 Disease of stomach and duodenum, unspecified; K22.4 Dyskinesia of esophagus; K63.5 Polyp of colon; K57.30 Diverticulosis of large intestine without perforation or abscess without bleeding; K64.1 Second degree hemorrhoids; N40.2 Nodular prostate without lower urinary tract symptoms; E11.9 Type 2 diabetes mellitus without complications; Z79.84 Long term (current) use of oral hypoglycemic drugs
CPT/HCPCS: 43239; 43249; 45385; 82962; C1726; J7120

== ENCOUNTER 2024-05-30 10:29 | Outpatient (CLI) | payer MEDICARE, SELFPAY ==
[2024-05-30 11:20] LABS: Basophils # 0.1 K/mm3 (0-0.2); Basophils % 0.7 % (0.1-2.0); Eosinophils # 0.1 K/mm3 (0.0-0.4); Eosinophils % 1.5 % (0.1-12.0); Hematocrit 47.2 % (42.0-52.0); Hemoglobin 15.5 g/dL (14.1-18.0); Lymphocytes # 1.4 K/mm3 (0.7-4.5); Lymphocytes % 18.5 % (10-50); Mean Corpuscular HGB Conc 32.8 g/dL (31.8-35.4); Mean Corpuscular Hemoglobin 27.1 pg (27.0-31.2); Mean Corpuscular Volume 82.4 fl (80-94); Mean Platelet Volume 10.2 fl (7.4-10.4); Monocytes # 0.8 K/mm3 (0.1-1.0); Monocytes % 11.3 % (1.7-9.3); Neutrophils % 67.3 % (37.0-80.0); Platelet Count 300 K/mm3 (142-424); Red Blood Count 5.73 M/mm3 (4.60-6.20); Red Cell Distribution Width 18.5 % (11.5-17.5); White Blood Count 7.4 K/mm3 (4.8-10.8)
[2024-05-30 11:36] LABS: Blood Urea Nitrogen 16 mg/dl (9-20); Estimated Glomerular Filt Rate 67 ml/min (>60); GFR (African American) 81 ML/MIN (>60)
[2024-05-31 08:17] LABS: Sex Hormone Binding Globulin 29.4 nmol/L (19.3-76.4); Testosterone,Total 1083 ng/dL (264-916)
== END 2024-05-30 23:59 | disposition home or self-care (01) ==
LOC: LAB 10:30
PROVIDERS: PCP Family Medicine; Visit Provider Urology
DX: R31.9 Hematuria, unspecified (principal); N40.1 Benign prostatic hyperplasia with lower urinary tract symptoms; N52.9 Male erectile dysfunction, unspecified
CPT/HCPCS: 36415; 82565; 84270; 84403; 84520; 85025

== ENCOUNTER 2024-07-27 11:50 | Outpatient (CLI) | payer MEDICARE, SELFPAY ==
[2024-07-27 18:45] LABS: Alanine Aminotransferase 35 U/L (12-78); Albumin Level 4.2 g/dl (3.5-5.0); Albumin/Globulin Ratio 1.4 (1.1-1.8); Alkaline Phosphatase 34 U/L (38-126); Anion Gap 14.9 mEq/L (5-15); Aspartate Amino Transferase 35 U/L (17-59); Bilirubin,Total 0.7 mg/dl (0.2-1.3); Blood Urea Nitrogen 20 mg/dl (9-20); Calcium 9.9 mg/dl (8.4-10.2); Carbon Dioxide 30 mmol/L (22.0-30.0); Chloride 96 mmol/L (98-107); Estimated Glomerular Filt Rate 61 ml/min (>60); GFR (African American) 74 ML/MIN (>60); Globulin 2.9 g/dL (1.3-3.2); Glucose 137 mg/dl (74-100); Potassium 4.9 mmoL/L (3.5-5.1); Sodium 136 mmol/L (136-145); Total Protein,Serum 7.1 g/dl (6.3-8.2)
[2024-07-27 20:01] LABS: Hemoglobin A1C 6.8 % (4.0-6.0)
== END 2024-07-27 23:59 | disposition home or self-care (01) ==
LOC: LAB.DROPOF 07-28 09:39
PROVIDERS: PCP Family Medicine; Visit Provider Family Medicine
DX: R31.9 Hematuria, unspecified (principal); R10.9 Unspecified abdominal pain
CPT/HCPCS: 80053; 83036

== ENCOUNTER 2025-02-23 10:01 | Outpatient (CLI) | payer MEDICARE, SELFPAY ==
[2025-02-23 15:18] LABS: Hematocrit 46.4 % (42.0-52.0); Hemoglobin 15.0 g/dL (14.1-18.0); Immature Granulocytes % 0.9 %; Mean Corpuscular HGB Conc 32.3 g/dL (31.8-35.4); Mean Corpuscular Hemoglobin 29.1 pg (27.0-31.2); Mean Corpuscular Volume 89.9 fl (80-94); Nucleated Red Blood Cells % 0.3 %; Platelet Count 275 K/mm3 (142-424); Red Blood Count 5.16 M/mm3 (4.60-6.20); Red Cell Distribution Width-SD 50.5 fL; White Blood Count 6.6 K/mm3 (4.8-10.8)
[2025-02-23 15:40] LABS: Albumin Level 4.3 g/dl (3.5-5.0); Albumin/Globulin Ratio 1.7 (1.1-1.8); Anion Gap 11.3 mEq/L (5-15); Carbon Dioxide 30 mmol/L (22.0-30.0); Chloride 97 mmol/L (98-107); Cholesterol 159 mg/dl (140-200); Globulin 2.6 g/dL (1.3-3.2); Glucose 159 mg/dl (74-100); Potassium 4.3 mmoL/L (3.5-5.1); Sodium 134 mmol/L (136-145); Total Protein,Serum 6.9 g/dl (6.3-8.2); Triglycerides 285 mg/dl (30-150)
[2025-02-23 15:41] LABS: Alanine Aminotransferase 42 U/L (12-78); Alkaline Phosphatase 61 U/L (38-126); Aspartate Amino Transferase 38 U/L (17-59); Bilirubin,Total 0.5 mg/dl (0.2-1.3); Blood Urea Nitrogen 15 mg/dl (9-20); Calcium 10.4 mg/dl (8.4-10.2); Creatinine,Serum 1.00 mg/dl (0.66-1.25); Estimated Glomerular Filt Rate 75 ml/min (>60); GFR (African American) 90 ML/MIN (>60); HDL Cholesterol 42 mg/dl (40-60)
[2025-02-23 16:31] LABS: Hepatitis C Ab Qual. W/ RFX NEGATIVE (Negative)
[2025-02-25 10:11] LABS: Testosterone,Total 1248 ng/dL (264-916)
--- OUTSIDE RECORDS SUMMARY | 2025-02-27 10:12 | XMS_ITS | Clinical Summary ---
Author Organization [facility] Address [address] [place] [address] Phone Care Team Providers Care Vp [employer] Name Role Phone Adalid Corona MD Primary Care Provider Allergies No known active allergies Medications metoprolol succinate ER (TOPROL XL) 100 mg XL tablet Take 100 mg by mouth daily. Active tramadol (ULTRAM-ER) 300 mg tablet Take 300 mg by mouth daily. Active DOCUSATE CALCIUM (STOOL SOFTENER ORAL) Take 1 Tab by mouth daily as needed. Active hydrocodone-acet aminophen (VICODIN) 5-500 mg per tablet Take 1 Tab by mouth every 8 hours as needed for Pain. Active OMEPRAZOLE ORAL Take 20 mg by mouth daily. Active gemfibrozil (LOPID) 600 mg Oral Tablet Take 600 mg by mouth 2 times daily (before meals). Active losartan (COZAAR) 25 mg Oral Tablet Take 25 mg by mouth 2 times daily. Active Phenazopyridine (AZO STANDARD) 97.5 mg Oral Tablet Take 1 Tab by mouth 3 times daily as needed (burning). 07/26/2017 Active Ibuprofen 200 mg Oral Capsule Take 400 mg by mouth every 6 hours as needed for Pain. 120 Cap 07/26/2017 Active acetaminophen (TYLENOL) 500 mg Oral Tablet Take 1 Tab by mouth every 4 hours as needed for Pain. 2 07/26/2017 Active Active Problems Problem Noted Date Diagnosed Date Renal colic on right side 07/26/2017 Benign essential HTN 07/26/2017 Hypertension 08/04/2011 Biliary dyskinesia 05/13/2011 Chest pain Abnormal ECG Bradycardia Shortness of breath Surgical History Surgery Date Site/Laterality Comments KIDNEY STONE SURGERY COLON SURGERY anal fissure repair 09/19/2010 CHOLECYSTECTOMY, LAPAROSCOPIC 05/16/2011 N/A LAPAROSCOPIC CHOLECYSTECTOMY; Surgeon: Melanie Addison MD; Location: [facility] MAIN OR; Service: General CARDIAC CATHETERIZATION 05/08/14 Dr. Rodas BACK SURGERY august 2015 ANUS SURGERY anal fissure repair ORTHOPEDIC SURGERY URETEROSCOPY 07/26/2017 Right Cystoscopy, right ureteroscopy, right retrograde, right ureteral basket stone extraction, right stent placement; Surgeon: Angelo Pino MD; Location: [facility] MAIN OR; Service: Urology Medical devices from this surgery are in the Medical Devices section. 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 Motion sickness Postoperative nausea and vomiting Severe Other disorders of kidney and ureter kidney stone Hyperlipidemia Heartburn Bulging disc Bradycardia Shortness of breath Family History Medical History Relation Name Comments Irritable Bowel Syndrome Paternal Grandmother Relation Name Status Comments Paternal Grandmother Social History Tobacco Use Types Packs/Day Years Used Date Smoking Tobacco: Former Cigarettes Q uit: 04/06/1989 Smokeless Tobacco: Never Tobacco Cessation:Counseling Given: Yes Alcohol Use Standard Drinks/Week Comments No 0 (1 standard drink = 0.6 oz pur e alcohol) Sex and Gender Information Value Date Recorded Sex Assigned at Not on file Legal Sex Male 4:19 AM EDT Gender Identity Not on file Sexual Orientation Not on file Last Filed Vital Signs Vital Sign Reading Time Taken Comments Blood Pressure 116/67 07/26/2017 4:28 PM EDT Pulse 82 07/26/2017 4:28 PM EDT Temperature 37 C (98.6 F) 07/26/2017 4:28 PM EDT Respiratory Rate 17 07/26/2017 4:28 PM EDT Oxygen Saturation 96% 07/26/2017 4:28 PM EDT Inhaled Oxygen Concentration - - Weight 85.7 kg (189 lb) 07/26/2017 6:48 AM EDT Height 167.6 cm (5' 6 ) 07/26/2017 6:48 AM EDT Body Mass Index 30.51 07/26/2017 6:48 AM EDT Plan of Treatment Health Maintenance Due Date Last Done Comments Hepatitis C Screening 1976 DTaP/TDaP/Td (1 - Tdap) 1977 Cologuard 10/04/2003 FIT 10/04/2003 Sigmoidoscopy 10/04/2003 Virtual Colonography 10/04/2003 Pneumococcal Vaccine 50+ (1 of 1 - PCV) 2008 Zoster (1 of 2) 2008 Annual Wellness Exam 06/15/2015 06/14/2014 (Not Entered) Colon Cancer Screening 09/01/2021 Colonoscopy 09/01/2021 09/02/2011 COVID-19 Vaccine (1 - 2024-2 6 season) 2024 Influenza Vaccine (#1) 2024 5 (Postponed) Hepatitis B Vaccine Aged Out No longe r eligible based on patient's age to complete this topic Meningococcal B Vaccine Aged Out No l onger eligible based on patient's age to complete this topic Medical Devices Implanted Type Area Lathe Hand Device Identifier Shelf Expiration Date Model / Serial / Lot Stent Ureteral Contour 6 X 26 #[id number] - [id number] Implanted:Qty: 1 on 07/26/2017 by Angelo Pino MD at [facility] Stent Right: Ureter [employer]: UROLOGY [id number] / / [id number] Procedures Procedure Name Priority Date/Time Associated Diagnosis Comments ED COLONOSCOPY Routine 09/02/2011 12:0 0 AM EDT from Last 3 Months or Most Recently Relevant to Health Maintenance Results * ED COLONOSCOPY (09/02/2011 12:00 AM EDT) 09[facility]02/[facility] 8:20 AM EDT Internal hemorrhoids Normal mucosa throughout; random biopsies obtained and stool samples collected. (biopsy) Narrative [facility] - 09/02/2011 8:20 AM EDT Performing Provider: Guillaume Mary MD Referring Provider: Omid Corona MD Amber Mary MD GI PROCEDURE ORDERABLES Final R esult [facility] [address] [address] from Last 3 Months or Most Recently Relevant to Health Maintenance Insurance ANTHEM PPO ANTHEM PPO Care Teams Vp [employer] Relationship Specialty Start Date End Date Adalid Corona MD PCP - General 08/26/10
--- OUTSIDE RECORDS SUMMARY | 2025-02-27 10:12 | XMS_ITS | Clinical Summary ---
Author Organization [facility] Address [address], [address] [place] [address] Care Team Providers Care Biometrics Specialist Name Role Phone Adalid Corona MD Primary Care Provider [phone] Allergies No known active allergies Medications naproxen (NAPROSYN) 500 MG tablet Take 1 tablet by mouth 2 times daily (with meals) 60 tablet 3 12/13/2014 Active Social History Tobacco Use Types Packs/Day Years Used Date Smoking Tobacco: Never Assessed Sex and Gender Information Value Date Recorded Sex Assigned at Not on file Legal Sex Male 9:58 AM EDT Gender Identity Not on file Sexual Orientation Not on file Last Filed Vital Signs Vital Sign Reading Time Taken Comments Blood Pressure 122/82 12/13/2014 11:15 AM EDT Pulse 100 12/13/2014 11:15 AM EDT Temperature - - Respiratory Rate - - Oxygen Saturation - - Inhaled Oxygen Concentration - - Weight 8.165 kg (18 lb) 12/13/2014 11:15 AM EDT Height 167.6 cm (5' 6 ) 12/13/2014 11:15 AM EDT Body Mass Index 2.91 12/13/2014 11:15 AM EDT Plan of Treatment Not on file Insurance Care Teams Biometrics Specialist Relationship Specialty Start Date End Date Adalid Corona MD PCP - General Family Medicine 12/13/14
--- OUTSIDE RECORDS SUMMARY | 2025-02-27 10:12 | XMS_ITS | Encounter Summary ---
Author [place] [address] Care Team Providers Care Starch Factory Laborer Name Role Phone Adalid Corona MD Primary Care Provider [phone] Encounter Details Date Type Department Care Team (Late st Contact Info) Description 07/25/2008 Orders Only SEP [facility] [address] [place] [address] Alex Olivo MD Social History Tobacco Use Types Packs/Day Years Used Date Smoking Tobacco: Never Assessed Sex and Gender Information Value Date Recorded Sex Assigned at Not on file Legal Sex Male 4:19 AM EDT Gender Identity Not on file Sexual Orientation Not on file documented as of this encounter Plan of Treatment Not on file documented as of this encounter Procedures Procedure Name Priority Date/Time Associated Diagnosis Comments ECHO - HISTORICAL Routine 07/25/2008 12: 00 AM EDT documented in this encounter Results * ECHO - HISTORICAL (07/25/2008 12:00 AM EDT) Anatomical Region Laterality Modality Other 07/25/2008 Narrative 04/08/2011 3:44 AM EST NOTICE: This report was electronically copied on 05/21/2011 from historical data generated by a practice prior to that practice using [facility] for Medical Records. Performing Provider: Alex Olivo M.D. us Alex Olivo MD IMG ECHO ORDERABLES Final Re sult documented in this encounter Visit Diagnoses Not on filedocumented in this encounter Care Teams Starch Factory Laborer Relationship Specialty Start Date End Date Adalid Corona MD PCP - General 08/26/10 documented as of this encounter
--- OUTSIDE RECORDS SUMMARY | 2025-02-27 10:12 | XMS_ITS | Encounter Summary ---
Author Organization [place] [address] Care Team Providers Care Twister Frame Tender Name Role Phone Adalid Corona MD Primary Care Provider [phone] Encounter Details Date Type Department Care Team (Late st Contact Info) Description 09/02/2011 Orders Only SEP [facility] [address] [place] [address] Amber Mary MD Social History Tobacco Use Types Packs/Day Years Used Date Smoking Tobacco: Former Cigarettes Q uit: 04/06/1989 Alcohol Use Standard Drinks/Week Comments No 0 [...] Procedure Name Priority Date/Time Associated Diagnosis Comments GMED COLONOSCOPY Routine 09/02/2011 12:0 0 AM EDT documented in this encounter Results * GMED COLONOSCOPY (09/02/2011 12:00 AM EDT) 09/02/2011 Impressions [facility] - 09/02/2011 8:20 AM EDT Internal hemorrhoids Normal mucosa throughout; random biopsies obtained and stool samples collected. (biopsy) Narrative ELLISRO - 09/02/2011 8:20 AM EDT Performing Provider: Guillaume Mary MD Referring Provider: Omid Corona MD Amber Mary MD GI PROCEDURE ORDERABLES Final R esult [facility] [address] [facility] [address] [address] documented in this encounter Visit Diagnoses Not on filedocumented in this encounter Care Teams Twister Frame Tender Relationship Specialty Start Date End Date Adalid Corona MD PCP - General 08/26/10 documented as of this encounter
--- OUTSIDE RECORDS SUMMARY | 2025-02-27 10:12 | XMS_ITS | Encounter Summary ---
Author Organization [place] [address] Care Team Providers Care Software Engineer Web Applications Name Role Phone Adalid Corona MD Primary Care Provider Encounter Details Date Type Department Care Team (Late st Contact Info) Description 09/02/2011 Orders Only SEP [facility] [address] [facility] [address] [place] [address] Amber Mary MD Social History Tobacco Use [...] Name Priority Date/Time Associated Diagnosis Comments GMED EGD Routine 09/02/2011 12:00 AM EDT documented in this encounter Results * [facility]ED EGD (09/02/2011 12:00 AM EDT) 09/02/2011 Impressions SEP[facility]O - 09/02/2011 8:10 AM EDT In the esophagus, the mucosal texture was (nonspecifically) altered. Biopsy taken for possible eosinophilic esophagitis. Erosion in the antrum (biopsy) Narrative HAJA - 09/02/2011 8:10 AM EDT Performing Provider: Guillaume Mary MD Referring Provider: Omid Corona MD Amber Mary MD GI PROCEDURE ORDERABLES Final R esult [facility] [address] [facility] [address] [address] documented in this encounter Visit Diagnoses Not on filedocumented in this encounter Care Teams Software Engineer Web Applications Relationship Specialty Start Date End Date Adalid Corona MD PCP - General 08/26/10 documented as of this encounter
== END 2025-02-23 23:59 ==
LOC: LAB.DROPOF 02-27 10:02
PROVIDERS: PCP Family Medicine; Visit Provider Family Medicine
DX: E34.9 Endocrine disorder, unspecified (principal); Z11.59 Encounter for screening for other viral diseases; E11.9 Type 2 diabetes mellitus without complications; I10 Essential (primary) hypertension
CPT/HCPCS: 80053; 80061; 84403; 85025; 86803; 87389